=== PATIENT | female | born 1990 | race Caucasian/White ===

== ENCOUNTER 2020-10-04 08:33 | Outpatient (REF) | payer BC, SELFPAY ==
[2020-10-04 11:10] LABS: MANUAL DIFF FLAG NO
[2020-10-04 11:16] LABS: Basophils Absolute Auto 0.1 X10*3/uL (0.0-0.2); Basophils Percent Auto 0.7 % (0-2); Eosinophils Absolute Auto 0.3 X10*3/uL (0.0-0.4); Eosinophils Percent Auto 4.4 % (0-4); Hematocrit 40.2 % (37-47); Hemoglobin 13.4 g/dl (12.0-16.0); Imm Gran Abs Auto 0.02 X10*3/uL (0.00-0.03); Imm Gran Pct Auto 0.3 % (0.0-0.4); Lymphocytes Absolute Auto 1.3 X10*3/uL (1.2-4.9); Lymphocytes Percent Auto 19.1 % (20-40); Mean Corpuscular HGB Conc 33.3 g/dl (31.0-35.0); Mean Corpuscular Hemoglobin 28.9 pg (27.0-33.0); Mean Corpuscular Volume 86.6 fL (80-98); Mean Platelet Volume 11.9 fL (9.4-12.3); Monocytes Absolute Auto 0.5 X10*3/uL (0.1-1.2); Monocytes Percent Auto 6.4 % (2-11); Neutrophils Absolute Auto 4.9 X10*3/uL (2.0-8.3); Neutrophils Percent Auto 69.1 % (45-73); Platelet Count 229 X10*3/uL (160-400); Red Blood Count 4.64 X10*6/uL (4.20-5.50); Red Cell Distribution Width 11.9 % (11.0-16.0)
[2020-10-04 12:04] LABS: TSH reflex Free T4 1.99 uIU/mL (0.32-4.0)
[2020-10-04 12:08] LABS: Alanine Aminotransferase 12 U/L (0-31); Albumin Level 4.6 g/dL (3.5-5.0); Alkaline Phosphatase 31 U/L (39-117); Anion Gap 13 (12-20); Aspartate Amino Transferase 14 U/L (5-31); Bilirubin Direct 0.3 mg/dL (0.0-0.5); Bilirubin Total 0.7 mg/dL (0.0-1.0); Blood Urea Nitrogen 10 mg/dL (9-16); Calcium 8.6 mg/dL (8.4-10.2); Carbon Dioxide 24 mmol/L (22-29); Chloride 106 mmol/L (96-108); Cholesterol 157 mg/dL; Estimated Glomerular Filt Rate > 60; Glucose Fasting 89 mg/dL (60-99); HDL Cholesterol 63 mg/dL; LDL Cholesterol Calculated 81 mg/dl; Potassium 4.1 mmol/L (3.3-5.1); Sodium 139 mmol/L (135-145); Total Protein 6.7 g/dL (6.5-8.0); Triglycerides 66 mg/dL
== END 2020-10-04 08:34 | disposition home or self-care (01) ==
LOC: HO.HMGCLDS 08:33
PROVIDERS: PCP Internal Medicine; Visit Provider Internal Medicine
DX: Z00.01 Encounter for general adult medical examination with abnormal findings (principal); F41.0 Panic disorder [episodic paroxysmal anxiety]
CPT/HCPCS: 36415; 80048; 80061; 80076; 84443; 85025

== ENCOUNTER 2021-02-04 13:41 | Outpatient (REF) | payer BC, SELFPAY ==
[2021-02-05 01:49] LABS: CT PCR NOT DETECTED (Not Detect.); NG PCR NOT DETECTED (Not Detect.)
== END 2021-02-04 13:42 | disposition home or self-care (01) ==
LOC: HO.LAB 13:41
PROVIDERS: PCP Internal Medicine; Visit Provider Advanced Practice Midwife
DX: Z01.419 Encounter for gynecological examination (general) (routine) without abnormal findings (principal); Z11.3 Encounter for screening for infections with a predominantly sexual mode of transmission; Z20.2 Contact with and (suspected) exposure to infections with a predominantly sexual mode of transmission
CPT/HCPCS: 87491; 87591; 88142

== ENCOUNTER 2021-10-08 10:45 | Outpatient (REF) | payer BC, SELFPAY ==
[2021-10-08 13:51] LABS: MANUAL DIFF FLAG NO
[2021-10-08 13:55] LABS: Basophils Absolute Auto 0.1 X10*3/uL (0.0-0.2); Eosinophils Absolute Auto 0.1 X10*3/uL (0.0-0.4); Eosinophils Percent Auto 2.9 % (0-4); Hematocrit 40.6 % (37.0-47.0); Hemoglobin 13.7 g/dl (12.0-16.0); Imm Gran Abs Auto 0.02 X10*3/uL (0.00-0.03); Imm Gran Pct Auto 0.4 % (0.0-0.4); Lymphocytes Absolute Auto 1.4 X10*3/uL (1.2-4.9); Mean Corpuscular HGB Conc 33.7 g/dl (31.0-35.0); Mean Corpuscular Hemoglobin 29.3 pg (27.0-33.0); Mean Corpuscular Volume 86.9 fL (80.0-98.0); Mean Platelet Volume 11.3 fL (9.4-12.3); Monocytes Absolute Auto 0.3 X10*3/uL (0.1-1.2); Monocytes Percent Auto 6.5 % (2-11); Neutrophils Percent Auto 60.2 % (45-73); Platelet Count 265 X10*3/uL (160-400); Red Blood Count 4.67 X10*6/uL (4.20-5.50); Red Cell Distribution Width 11.9 % (11.0-16.0); White Blood Count 4.9 X10*3/uL (4.8-10.8)
[2021-10-08 14:11] LABS: Alanine Aminotransferase 25 U/L (0-31); Albumin Level 4.5 g/dL (3.5-5.0); Alkaline Phosphatase 38 U/L (39-117); Anion Gap 12 (12-20); Aspartate Amino Transferase 22 U/L (5-31); Bilirubin Total 0.7 mg/dL (0.0-1.0); Blood Urea Nitrogen 12 mg/dL (9-16); Calcium 9.1 mg/dL (8.4-10.2); Carbon Dioxide 26 mmol/L (22-29); Chloride 104 mmol/L (96-108); Cholesterol 203 mg/dL; Estimated Glomerular Filt Rate > 60; Glucose Fasting 83 mg/dL (60-99); HDL Cholesterol 67 mg/dL; LDL Cholesterol Calculated 114 mg/dl; Potassium 4.1 mmol/L (3.3-5.1); Sodium 138 mmol/L (135-145); Total Protein 6.8 g/dL (6.5-8.0); Triglycerides 112 mg/dL
[2021-10-08 14:32] LABS: TSH reflex Free T4 1.57 uIU/mL (0.32-4.0)
== END 2021-10-08 10:46 | disposition home or self-care (01) ==
LOC: HO.HMGCLDS 10:45
PROVIDERS: Visit Provider Internal Medicine
DX: Z00.01 Encounter for general adult medical examination with abnormal findings (principal); F41.0 Panic disorder [episodic paroxysmal anxiety]
CPT/HCPCS: 36415; 80053; 80061; 84443; 85025

== ENCOUNTER 2022-02-10 13:32 | Outpatient (REF) | payer BC, SELFPAY ==
[2022-02-13 19:06] LABS: HPV mRNA E6/E7 rflx Not Detected (Not Detected)
== END 2022-02-10 13:33 | disposition home or self-care (01) ==
LOC: HO.LAB 13:32
PROVIDERS: Visit Provider Advanced Practice Midwife
DX: Z01.419 Encounter for gynecological examination (general) (routine) without abnormal findings (principal)
CPT/HCPCS: 87624; 88142

== ENCOUNTER 2023-02-19 13:51 | Outpatient (REF) | payer BC, SELFPAY | END 2023-02-19 13:52 | disposition home or self-care (01) | LOC: HO.HMGCLDS 13:51 | PROVIDERS: PCP Internal Medicine; Visit Provider Internal Medicine | DX: Z00.01 Encounter for general adult medical examination with abnormal findings (principal); F41.0 Panic disorder [episodic paroxysmal anxiety]; R79.89 Other specified abnormal findings of blood chemistry | CPT/HCPCS: 36415; 80053; 85025 ==

== ENCOUNTER 2023-04-01 12:48 | Outpatient (AMB) | payer BC, SELFPAY ==
--- NOTE | 2023-04-01 12:53 | A.OFFVIS_ITS ---
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 Scribed for RICHA Isaac by Lilliana Dominguez medical donation professional, on 04/01/2023 at 1:11 pm EST. [employer] Etch Operator Required: No Information Interpreted: non-clinical & clinical Litigation Services Manager: Litigation Services Manager Present (Dinorah) Allergies No Known Allergies Allergy (Verified 04/01/23 12:58) Is last menstrual period known: Yes Last menstrual period: 03/22/23 Post menopausal: No Patient : No HPI HPI Comments History of Present Illness Details She is a premenopausal woman presenting for annual exam. She admits to eating healthy and tries to stay active with exercise. Currently sexually active. Her and her recently seen infertility specialist with results of partner has low sperm count and are planning to do IUI. Regular monthly periods. Denies vaginal itching and irritation. Denies family hx of breast and ovarian cancer. Last pap smear 02/10/22. [facility] Medical History History of infertility Panic anxiety syndrome Surgical History H/O plastic surgery Hx of wisdom tooth extraction Family History Mother CLL (chronic lymphocytic leukemia) Father No problems noted. Paternal Grandmother Colon cancer Social History Household Members: Spouse Housing: House Alcohol intake: current Alcohol intake frequency: holidays/special occasions only Patient Tobacco Use Status: Never used Tobacco e-Cigarette/Vaping Use: Never Used Second Hand Smoke Exposure: No service: No Current occupational status: employed Current occupation: [employer] Current occupational exposures/hazards: No Sexual orientation: Straight/Heterosexual Gender identity: Female Cognitive needs: No Hearing needs: No Vision needs: No Female Reproductive History Menstrual Age of Menarche: 15 Duration of menses: 3-5 days Date of last menstrual period: 03/22/23 control method: none Total pregnancies: 0 Date of last pap smear: 02/10/22 (neg pap and hpv) Physical Exam Vital Signs: Last Vital Signs BP 106/62 04/01/23 12:55 BMI result Body Mass Index 27.6 Const General: cooperative, healthy appearing, no acute distress, well developed and alert Orientation/consciousness: patient oriented x3 HEENT Head: Yes normal to inspection Eyes General: appearance normal, both eyes and all related structures Neck Neck: Yes normal visual inspection Thyroid: Thyroid normal Chest Chest palpation & inspection: normal inspection of the chest Breast/axilla inspection: normal inspection of the breasts (no puckering, dimpling, peau de orange, retraction, discharge, masses) Breast/axilla palpation: normal palpation of the breasts Resp Effort & Inspection: normal respiratory effort GI Inspection: Yes normal to inspection Palpation (GI): Soft to palpation (to palpation) Rectal Exam - Female: deferred General: Yes bladder normal to inspection External Female Exam: normal external appearance and normal appearance of the urethra Speculum Exam - Vagina: normal appearance of the vagina, normal palpation and normal vaginal discharge Speculum Exam - Cervix: normal appearance of the cervix and normal palpation Bimanual exam- vagina & uterus: normal palpation and normal palpation Bimanual Exam- Adnexa, other: normal adnexae and no masses Skin General skin exam: no rashes or lesions noted Neuro General: patient oriented x3 Cognition (Neuro): normal cognition Extrem General: Yes normal to inspection Psych Attitude: cooperative Thought process: Normal thought process present Assessment & Plan Assessment & Plan (1) History of infertility: Comment: partner has low sperm count; planning to do IUI. Code(s): Z87.42 - Personal history of other diseases of the female genital tract (2) Encounter for annual routine gynecological examination: Code(s): Z01.419 - Encounter for gynecological examination (general) (routine) without abnormal findings Plan: Discussed: Current recommendations for pap smears per ASCCP guidelines Breast awareness and periodic self breast exams. Maintaining a healthy lifestyle including a well balanced diet and routine exercise. If become consider transferring care to [facility] due to possibly being high risk. All of her questions and concerns were addressed to the best of my ability. RTO in one year for AG. Coding Level of Care Code Est Pt Prev Care 18-39y(38525) Diagnoses History of infertility Z87.42 Encounter for annual routine gynecological examination Z01.419
[2023-04-01 12:55] VITALS: BP 106/62; BMI 27.6
== END 2023-04-01 13:22 | disposition home or self-care (01) ==
LOC: HO.HWS 12:48
PROVIDERS: PCP Internal Medicine; Visit Provider Advanced Practice Midwife
DX: Z01.419 Encounter for gynecological examination (general) (routine) without abnormal findings (principal); Z87.42 Personal history of other diseases of the female genital tract
CPT/HCPCS: 99395

== ENCOUNTER → 2023-04-01 12:48 | Outpatient (BNVA) | payer BC, SELFPAY | PROVIDERS: PCP Internal Medicine; Visit Provider Advanced Practice Midwife ==

== ENCOUNTER 2023-08-24 15:03 | Outpatient (AMB) | payer BC, SELFPAY ==
[2023-08-24 15:06] VITALS: BP 114/72; PULSE 66; O2SAT 98; BMI 28.0
--- NOTE | 2023-08-24 15:06 | A.OFFPC_ITS ---
Vital Signs 08/24/23 15:06 Height 5 ft 3 in Weight 158 lb 2 oz BMI 28.0 BP 114/72 Blood Pressure Location Lt brachial Position Sitting Pulse 66 Pulse Source Pulse Oximeter Pulse Oximetry (%) 98 Oxygen Delivery Method Room Air Intake Visit Reasons: 6 month follow up Allergies No Known Allergies Allergy (Verified 08/24/23 15:06) Medication List - Last Reconciled 08/24/23 by Tony East MD fluoxetine 10 mg PO DAILY 90 days Tobacco use date assessed: 08/24/23 Dental Screening Dental Screen Date: 08/24/23 Did you have a dental visit in the last 12 months?: Yes Did you have a dental problem in the last 6 months where you did not have access to dental care?: No Was dental information given to patient?: Patient has dentist HPI 6 month follow up HPI Details Patient is a 33-year-old female came in today for six-month follow-up appointment on anxiety panic disorder Patient is on fluoxetine 10 mg and is doing very well Sleeping well, no side effects She had slightly elevated LFT we will be monitoring that again in summer when e will come in for physical exam. She offer no complaints today [facility] Medical History History of infertility Panic anxiety syndrome Surgical History Hx of wisdom tooth extraction H/O plastic surgery Family History Mother CLL (chronic lymphocytic leukemia) Father No problems noted. Paternal Grandmother Colon cancer Social History Household Members: Spouse Housing: House Alcohol intake: current Alcohol intake frequency: holidays/special occasions only Patient Tobacco Use Status: Never used Tobacco e-Cigarette/Vaping Use: Never Used Second Hand Smoke Exposure: No service: No Current occupational status: employed Current occupation: [employer] Current occupational exposures/hazards: No Sexual orientation: Straight/Heterosexual Gender identity: Female Cognitive needs: No Hearing needs: No Vision needs: No Female Reproductive History Menstrual Age of Menarche: 15 Questionnaire Thrive Questionnaire Date Thrive assessed: 10/07/21 SERENA-7 AMB Questionnaire SERENA-7 Date SERENA - 7 assessed: 10/07/21 Source: Developed by Drs. Jack Villanueva, Radha Vasquez, Porfirio Hendrix and colleagues, with an educational laurita from [employer]. Review of Systems Const Denies chills and Denies fever(s) ENT Denies epistaxis and Denies nasal discharge Card Denies chest pain Resp Denies chest congestion, Denies cough and Denies hemoptysis GI Denies diarrhea and Denies nausea Skin/Breast Denies rash Neuro Reports no additional complaints Psych Reports no additional complaints Endo Reports no additional complaints Physical exam (Primary Care) Vital Signs: Last Vital Signs Pulse 66 08/24/23 15:06 BP 114/72 08/24/23 15:06 Pulse Ox 98 08/24/23 15:06 Oxygen Delivery Method Room Air 08/24/23 15:06 BMI result Body Mass Index 28.0 Tobacco/Smoking Status: Tobacco use Status Tobacco use date assessed 08/24/23 08/24/23 15:08 Patient Tobacco Use Status Never used Tobacco 08/24/23 15:08 e-Cigarette/Vaping Use Never Used 08/24/23 15:08 Thrive Assessment: Date of Thrive Assessment Date Thrive assessed 10/07/21 08/24/23 15:08 Const General: cooperative, comfortable and no acute distress Orientation/consciousness: patient oriented x3 HENMT Head: Yes normocephalic Eyes General: appearance normal, both eyes and all related structures Neck Neck: Yes supple Resp Effort & Inspection: normal respiratory effort, no cough and no stridor Cardio Rhythm: regular rhythm Heart sounds: S1 normal heart sound present and S2 normal heart sound present Skin General skin exam: turgor normal Neuro General: patient oriented x3, tone normal and moves all extremities Extrem Right lower extremity: no edema Left lower extremity: no edema Assessment and Plan Assessment & Plan (1) Panic anxiety syndrome: Code(s): F41.0 - Panic disorder [episodic paroxysmal anxiety] (2) LFT elevation: Code(s): R79.89 - Other specified abnormal findings of blood chemistry Plan Patient is a 33-year-old female came in today for six-month follow-up appointment on anxiety panic disorder Patient is on fluoxetine 10 mg and is doing very well Sleeping well, no side effects She had slightly elevated LFT we will be monitoring that again in summer when she will come in for physical exam. She offer no complaints today Orders: Orders LDL Cholesterol Direct 5 Months F41.0 - Panic disorder [episodic paroxysmal anxiety], R79.89 - Other specified abnormal findings of blood chemistry TSH reflex Free T4 5 Months F41.0 - Panic disorder [episodic paroxysmal anxiety], R79.89 - Other specified abnormal findings of blood chemistry Complete Blood Count Auto Diff 5 Months F41.0 - Panic disorder [episodic paroxysmal anxiety], R79.89 - Other specified abnormal findings of blood chemistry Comprehensive Met. Panel 5 Months F41.0 - Panic disorder [episodic paroxysmal anxiety], R79.89 - Other specified abnormal findings of blood chemistry Medications: Refilled fluoxetine 10 mg PO DAILY 90 caps 1RF 90 days F41.0 - Panic disorder [episodic paroxysmal anxiety] Coding Level of Care Code Est Pt Level 3 (52318) Diagnoses Panic anxiety syndrome F41.0 LFT elevation R79.89
== END 2023-08-24 15:35 | disposition home or self-care (01) ==
PROVIDERS: PCP Internal Medicine; Visit Provider Internal Medicine
DX: F41.0 Panic disorder [episodic paroxysmal anxiety] (principal); R79.89 Other specified abnormal findings of blood chemistry
CPT/HCPCS: 99213

== ENCOUNTER 2024-02-29 11:26 | Outpatient (AMB) | payer BC, SELFPAY ==
--- NOTE | 2024-02-29 11:28 | MHC.PC.OV ---
Vital Signs 02/29/24 11:29 Height 5 ft 3 in Weight 158 lb BMI 28.0 BP 124/80 Blood Pressure Location Lt brachial Position Sitting Pulse 67 Pulse Source Pulse Oximeter Pulse Oximetry (%) 98 Oxygen Delivery Method Room Air Intake Visit Reasons: PE Allergies No Known Allergies Allergy (Verified 02/29/24 11:28) Medication List - Last Reconciled 02/29/24 by Tony East MD fluoxetine 10 mg PO DAILY 90 days Tobacco use date assessed: 02/29/24 Dental Screening Dental Screen Date: 08/24/23 HPI PE HPI Details Patient is a 33-year-old female came in today for physical exam Patient is established with [facility] Labs done last year reviewed Alkaline phosphatase is slightly elevated, we will be repeating the labs again Patient is on fluoxetine 10 mg for anxiety/panic disorder and is doing well Six-month follow-up for fluoxetine refill and physical exam 1 year [facility] Medical History History of infertility Panic anxiety syndrome Surgical History Hx of wisdom tooth extraction H/O plastic surgery Family History Mother CLL (chronic lymphocytic leukemia) Father No problems noted. Paternal Grandmother Colon cancer Social History Household Members: Spouse Housing: House Alcohol intake: current Alcohol intake frequency: holidays/special occasions only Patient Tobacco Use Status: Never used Tobacco e-Cigarette/Vaping Use: Never Used Second Hand Smoke Exposure: No service: No Current occupational status: employed Current occupation: [employer] Current occupational exposures/hazards: No Sexual orientation: Straight/Heterosexual Gender identity: Female Cognitive needs: No Hearing needs: No Vision needs: No Female Reproductive History Menstrual Age of Menarche: 15 Questionnaire PHQ-9 Over the last 2 weeks, how often have you been bothered by any of the following problems? 1. Little interest or pleasure in doing things: not at all 2. Feeling down, depressed, or hopeless: not at all 3. Trouble falling or staying asleep, or sleeping too much: not at all 4. Feeling tired or having little energy: not at all 5. Poor appetite or overeating: not at all 6. Feeling bad about yourself - or that you are a failure or have let yourself or your family down: not at all 7. Trouble concentrating on things, such as reading the newspaper or watching television: not at all 8. Moving or speaking so slowly that other people could have noticed. Or the opposite - being so fidgety or restless that you have been moving around a lot more than usual: not at all 9. Thoughts that you would be better off or of hurting yourself in some way: not at all Total score: 0 Depression Screening Interpretation: Negative Depression Screening Done: Yes 36212 - PHQ-9 Billing: Yes Source: Developed by Drs. Jack Villanueva, Radha Vasquez, Porfirio Hendrix and colleagues, with an educational laurita from [employer]. Thrive Questionnaire Date Thrive assessed: 02/29/24 I am a: Patient What is your living situation today?: I have a steady place to live Within the past 12 months, did the food you bought not last and you didn't have the money to get more?: Never true Within the past 12 months, did you worry whether your food would run out before you got money to buy more?: Never true Do you have trouble paying for medicines?: No Do you have trouble getting transportation to medical appointments?: No Do you have trouble paying your heating and electricity bill?: No Do you have trouble taking care of your child, family member or friend?: No Do you have trouble with day-to-day activities such as bathing, preparing meals, shopping, managing finances, etc.?: No Are you currently unemployed and looking for a job?: No Are you interested in more education?: No Please select the resources that you would like help with: Housing/Long-Term Currently or been in a relationship where the following occur: No concerns reported THRIVE Score: 0 AUDIT C Alcohol Use Questionnaire (AUDIT-C) 1. How often do you have a drink containing alcohol?: Never 2. How many drinks containing alcohol do you have on a typical day when you are drinking?: 1 or 2 3. How often do you have six or more drinks on one occasion?: Never Total Score: 0 Score Reviewed/Action Taken: Yes SERENA-7 AMB Questionnaire SERENA-7 Date SERENA - 7 assessed: 02/29/24 Feeling nervous, anxious, or on edge: 0 = Not at all Not being able to stop or control worryin = Not at all Worrying too much about different things: 0 = Not at all Trouble relaxin = Not at all Being so restless that it is hard to sit still: 0 = Not at all Becoming easily annoyed or irritable: 0 = Not at all Feeling afraid as if something awful might happen: 0 = Not at all Total SERENA-7 score (0-4 normal; 5-9 mild; 10-14 moderate; 15-21 severe): 0 Source: Developed by Drs. Jack Villanueva, Radha Vasquez, Porfirio Hendrix and colleagues, with an educational laurita from [employer]. SERENA-7 Assessment Billing SERENA-7 Assessment Tool: SERENA-7 Assessment 55946 Review of Systems Const Denies chills, Denies fever(s) and Denies headache(s) Eyes Denies blurry vision ENT Denies headache(s), Denies nasal discharge, Denies nasal obstruction, Denies odynophagia and Denies sinus pain Card Denies chest pain at rest and Denies chest pain with activity Resp Denies cough and Denies hemoptysis GI Denies diarrhea, Denies odynophagia, Denies vomiting and Denies hematemesis Reports as per HPI Musc Denies abnormal gait Skin/Breast Reports as per HPI Neuro Denies Neuro-related abnormal movements, Denies Abnormal speech present, Denies abnormal gait, Denies headache(s) and Denies Sensory deficit (Neuro) Psych Denies mood swings and Denies paranoia Endo Reports as per HPI Karsten/Lymph Reports as per HPI Aller/Immun Reports as per HPI Physical exam (Primary Care) Vital Signs: Last Vital Signs Pulse 67 02/29/24 11:29 BP 124/80 02/29/24 11:29 Pulse Ox 98 02/29/24 11:29 Oxygen Delivery Method Room Air 02/29/24 11:29 BMI result Body Mass Index 28.0 Tobacco/Smoking Status: Tobacco use Status Tobacco use date assessed 02/29/24 02/29/24 11:33 Patient Tobacco Use Status Never used Tobacco 02/29/24 11:33 e-Cigarette/Vaping Use Never Used 02/29/24 11:33 PHQ-9: PHQ-9 Score PHQ-9: Total score 0 02/29/24 11:35 Depression Screening Interpretation: Negative Thrive Assessment: Date of Thrive Assessment Date Thrive assessed 02/29/24 02/29/24 11:33 Currently or been in a relationship where the following occur: No concerns reported Const General: cooperative, comfortable and no acute distress Orientation/consciousness: patient oriented x3 HENMT Head: Yes normocephalic and Yes atraumatic Eyes General: appearance normal, both eyes and all related structures Pupils: Equal, round and reactive pupils present EOM: EOMs intact bilaterally Neck Neck: Yes supple and No lymphadenopathy Thyroid: Thyroid normal Lymphatic: no lymphadenopathy noted Resp Effort & Inspection: normal respiratory effort and able to speak in complete sentences Auscultation: clear to auscultation bilaterally Cardio Heart sounds: S1 normal heart sound present and S2 normal heart sound present GI Palpation (GI): Soft to palpation and nontender Auscultation: normal bowel sounds General: Yes no CVA tenderness Back/Spine/Pelvis Back: no CVA tenderness Skin General skin exam: elasticity normal and turgor normal Neuro General: patient oriented x3 and gait normal Cranial nerves: Yes Equal, round and reactive pupils present Speech: No Abnormal speech present Sensory Exam: No Sensory deficit (Neuro) Coordination: tandem gait normal and Romberg test negative Extrem General: Yes normal exam except as noted and No edema Assessment and Plan Assessment & Plan (1) Encounter for general adult medical examination with abnormal findings: Code(s): Z00.01 - Encounter for general adult medical examination with abnormal findings (2) Panic anxiety syndrome: Code(s): F41.0 - Panic disorder [episodic paroxysmal anxiety] (3) LFT elevation: Code(s): R79.89 - Other specified abnormal findings of blood chemistry Plan Patient is a 33-year-old female came in today for physical exam Patient is established with [facility] Labs done last year reviewed Alkaline phosphatase is slightly elevated, we will be repeating the labs again Patient is on fluoxetine 10 mg for anxiety/panic disorder and is doing well Six-month follow-up for fluoxetine refill and physical exam 1 year Medications: Refilled fluoxetine 10 mg PO DAILY 90 caps 1RF 90 days F41.0 - Panic disorder [episodic paroxysmal anxiety] Coding Level of Care Code Est Pt Prev Care 18-39y(25373) Diagnoses Encounter for general adult medical examination with abnormal findings Z00.01 Panic anxiety syndrome F41.0 LFT elevation R79.89 Additional Codes SERENA-7 Assessment Billing - SERENA-7 Assessment Tool: SERENA-7 Assessment [id number] ([id number])
[2024-02-29 11:29] VITALS: BP 124/80; PULSE 67; O2SAT 98; BMI 28.0
== END 2024-02-29 11:51 | disposition home or self-care (01) ==
PROVIDERS: PCP Internal Medicine; Visit Provider Internal Medicine
DX: Z00.00 Encounter for general adult medical examination without abnormal findings (principal); F41.0 Panic disorder [episodic paroxysmal anxiety]; R79.89 Other specified abnormal findings of blood chemistry
CPT/HCPCS: 99395

== ENCOUNTER 2024-02-29 11:54 | Outpatient (REF) | payer BC, SELFPAY ==
[2024-02-29 12:59] LABS: MANUAL DIFF FLAG NO
[2024-02-29 13:07] LABS: Basophils Percent Auto 0.8 % (0-2); Eosinophils Absolute Auto 0.1 X10*3/uL (0.0-0.4); Eosinophils Percent Auto 1.6 % (0-4); Hematocrit 39.6 % (37.0-47.0); Hemoglobin 13.6 g/dl (12.0-16.0); Imm Gran Abs Auto 0.01 X10*3/uL (0.00-0.03); Imm Gran Pct Auto 0.2 % (0.0-0.4); Lymphocytes Absolute Auto 1.5 X10*3/uL (1.2-4.9); Lymphocytes Percent Auto 29.7 % (20-40); Mean Corpuscular HGB Conc 34.3 g/dl (31.0-35.0); Mean Corpuscular Hemoglobin 29.6 pg (27.0-33.0); Mean Corpuscular Volume 86.3 fL (80.0-98.0); Mean Platelet Volume 10.6 fL (9.4-12.3); Monocytes Absolute Auto 0.4 X10*3/uL (0.1-1.2); Monocytes Percent Auto 7.1 % (2-11); Neutrophils Percent Auto 60.6 % (45-73); Platelet Count 310 X10*3/uL (160-400); Red Blood Count 4.59 X10*6/uL (4.20-5.50); Red Cell Distribution Width 11.9 % (11.0-16.0)
[2024-02-29 13:44] LABS: Alanine Aminotransferase 23 U/L (0-31); Albumin Level 4.6 g/dL (3.5-5.0); Alkaline Phosphatase 39 U/L (39-117); Anion Gap 13 (12-20); Aspartate Amino Transferase 21 U/L (5-31); Bilirubin Total 0.6 mg/dL (0.0-1.0); Blood Urea Nitrogen 11 mg/dL (9-16); Calcium 9.6 mg/dL (8.4-10.2); Carbon Dioxide 25 mmol/L (22-29); Chloride 105 mmol/L (96-108); Estimated Glomerular Filt Rate > 60; Glucose Random 94 mg/dL (60-115); Potassium 3.8 mmol/L (3.3-5.1); Sodium 139 mmol/L (135-145); TSH reflex Free T4 1.41 uIU/mL (0.32-4.0); Total Protein 6.9 g/dL (6.5-8.0)
[2024-03-03 06:09] LABS: LDL Cholesterol Direct 154 mg/dL (<100)
== END 2024-02-29 11:55 | disposition home or self-care (01) ==
LOC: HO.HMGCLDS 11:54
PROVIDERS: PCP Internal Medicine; Visit Provider Internal Medicine
DX: F41.0 Panic disorder [episodic paroxysmal anxiety] (principal); R79.89 Other specified abnormal findings of blood chemistry
CPT/HCPCS: 36415; 80053; 83721; 84443; 85025

== ENCOUNTER 2024-04-05 14:33 | Outpatient (AMB) | payer BC, SELFPAY ==
--- NOTE | 2024-04-05 14:38 | A.OFFVIS_ITS ---
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 Doing well with concerns: unable to conceive after 3.5yrs, seen at [facility] in the past. Using as to help with ovulation prediction. She tries to eat healthy and stays active with exercise. Regular monthly menses. Currently is sexually active. She denies vaginal itching and irritation. STI screening offered; she declined. Denies family history of breast, ovarian or cancer. FH colon cancer-[facility]. Last pap smear 2021, negative. [facility] Medical History History of infertility Panic anxiety syndrome Surgical History Hx of wisdom tooth extraction H/O plastic surgery Family History Mother CLL (chronic lymphocytic leukemia) Father No problems noted. Paternal Grandmother Colon cancer Social History Household Members: Spouse Housing: House Alcohol intake: current Alcohol intake frequency: holidays/special occasions only Patient Tobacco Use Status: Never used Tobacco e-Cigarette/Vaping Use: Never Used Second Hand Smoke Exposure: No service: No Current occupational status: employed Current occupation: [email or web address] Current occupational exposures/hazards: No Sexual orientation: Straight/Heterosexual Gender identity: Female Cognitive needs: No Hearing needs: No Vision needs: No Female Reproductive History Menstrual Age of Menarche: 15 Duration of menses: 3-5 days Date of last menstrual period: 03/16/24 Menopause type: natural Total pregnancies: 0 Date of last pap smear: 02/10/22 (neg pap and hpv) Review of Systems Const All systems reviewed & are unremarkable except as noted in HPI and below Reports as per HPI Eyes Reports no additional complaints ENT Reports no additional complaints Card Reports no additional complaints Resp Reports no additional complaints GI Reports as per HPI and Reports no additional complaints Reports as per HPI Musc Reports no additional complaints Skin/Breast Reports as per HPI Neuro Reports no additional complaints Psych Reports no additional complaints Endo Reports no additional complaints Karsten/Lymph Reports no additional complaints Aller/Immun Reports no additional complaints Physical Exam Vital Signs: Last Vital Signs BP 100/66 04/05/24 14:39 BMI result Body Mass Index 28.2 Const General: cooperative, healthy appearing, no acute distress, well developed and alert Orientation/consciousness: patient oriented x3 HEENT Head: Yes normal to inspection Eyes General: appearance normal, both eyes and all related structures Neck Neck: Yes normal visual inspection Thyroid: Thyroid normal Chest Chest palpation & inspection: normal inspection of the chest and other (no puckering, dimpling, peau de orange, retraction, discharge, masses) Breast/axilla inspection: normal inspection of the breasts Breast/axilla palpation: normal palpation of the breasts Resp Effort & Inspection: normal respiratory effort GI Inspection: Yes normal to inspection Palpation (GI): Soft to palpation Rectal Exam - Female: deferred General: Yes bladder normal to palpation External Female Exam: normal external appearance and normal appearance of the urethra Speculum Exam - Vagina: normal appearance of the vagina, normal palpation and normal vaginal discharge Speculum Exam - Cervix: normal appearance of the cervix and normal palpation Bimanual exam- vagina & uterus: normal bimanual exam, normal palpation, uterine size normal, bladder normal to palpation, normal palpation and non-tender Bimanual Exam- Adnexa, other: no masses Skin General skin exam: no rashes or lesions noted Rashes: no rashes Neuro General: patient oriented x3 Cognition (Neuro): normal cognition Extrem General: Yes normal to inspection Psych Attitude: cooperative Thought process: Normal thought process present Assessment & Plan Assessment & Plan (1) Encounter for well woman exam with routine gynecological exam: Code(s): Z01.419 - Encounter for gynecological examination (general) (routine) without abnormal findings Category: Medical Plan Discussed: Current recommendations for pap smears per ASCCP guidelines. Breast awareness and periodic breast exams. Maintain a healthy lifestyle including a well balanced diet and routine exercise. Recommended she consider referral to [facility], advised to check coverage on her insurance plan and let me know where she would like to be referred to. Continue with her vitamins, declined prescription. Patient verbalizes understanding and agrees to the plan of care. She was given opportunity to ask questions and all questions were answered to the best of my ability. 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 This note is constructed using voice recognition software. While every effort has been made to ensure accuracy, brush finisher errors may have been included. Coding Level of Care Code Est Pt Prev Care 18-39y(52342) Diagnoses Encounter for well woman exam with routine gynecological exam Z01.419
[2024-04-05 14:39] VITALS: BP 100/66; BMI 28.2
== END 2024-04-05 15:06 | disposition home or self-care (01) ==
LOC: HO.HWS 14:33
PROVIDERS: PCP Internal Medicine; Visit Provider Advanced Practice Midwife
DX: Z01.419 Encounter for gynecological examination (general) (routine) without abnormal findings (principal)
CPT/HCPCS: 99395

== ENCOUNTER → 2024-04-05 14:33 | Outpatient (BNVA) | payer BC, SELFPAY | PROVIDERS: PCP Internal Medicine; Visit Provider Advanced Practice Midwife ==

== ENCOUNTER 2024-07-29 10:46 | Outpatient (AMB) | payer BC, SELFPAY ==
[2024-07-29 10:48] VITALS: BP 110/66; PULSE 78; TEMP 36.6; O2SAT 98; BMI 28.2
--- NOTE | 2024-07-29 10:48 | AM.OFFWIN_ITS ---
Intake Vital Signs 07/29/24 10:48 Height 5 ft 3 in Weight 159 lb BMI 28.2 BP 110/66 Blood Pressure Location Rt brachial Position Sitting Pulse 78 Pulse Source Pulse Oximeter Temp 97.9 F Temp Source Temporal Artery Scan Pulse Oximetry (%) 98 Intake Visit Reasons: EP ?ear infection Intake Note: pt is here for ear infection Patient Tobacco Use Status: Never used Tobacco Allergies No Known Allergies Allergy (Verified 07/29/24 10:48) Do you need a note to return to daycare/school/sports/work: No HPI HPI Comments History of Present Illness Details She presents to office with cold symptoms Congestion x 1 week Eorsening sore throat Onset R sided sharp pain ear pain since last night + blocked hearing No medicine for symptoms No fever or chills Able to eat and drink with discomfort + slight cough without SOB PFSH Medical History History of infertility Panic anxiety syndrome Surgical History Hx of wisdom tooth extraction H/O plastic surgery Family History Mother CLL (chronic lymphocytic leukemia) Father No problems noted. Paternal Grandmother Colon cancer Social History Household Members: Spouse Housing: House Alcohol intake: current Alcohol intake frequency: holidays/special occasions only Patient Tobacco Use Status: Never used Tobacco e-Cigarette/Vaping Use: Never Used Second Hand Smoke Exposure: No service: No Current occupational status: employed Current occupation: [employer] Current occupational exposures/hazards: No Sexual orientation: Straight/Heterosexual Gender identity: Female Cognitive needs: No Hearing needs: No Vision needs: No Female Reproductive History Menstrual Age of Menarche: 15 Review of Systems Const Denies chills and Denies fever(s) Eyes Denies change in vision ENT Denies ear discharge, Reports nasal congestion, Reports sore throat and Reports other (pain R ear) Card Denies chest pain and Denies dyspnea Resp Reports cough and Denies dyspnea Musc Denies myalgias Physical Exam Vital Signs: Last Vital Signs Temp 97.9 F 07/29/24 10:48 Pulse 78 07/29/24 10:48 BP 110/66 07/29/24 10:48 Pulse Ox 98 07/29/24 10:48 BMI result Body Mass Index 28.2 General: Non-toxic, NAD. Speaking full sentences. Skin: Warm dry throughout Eye: EOMI HENT: Airway patent. Uvula midline. No pharyngeal erythema or edema. No AERONAUTICAL INSPECTOR. Bilateral canals clear. R TM +erythematous and bulging. L Tm slight erythema without bulge. No bilateral TM perforation or hemotympanum noted. No mastoid tenderness R side. Respiratory: CTA bilaterally. No wheezes, rales or rhonchi Cardiac: RRR. No murmur MSK: Full ROM extremities. Neurology: Alert. No aphasia or facial droop. Gait without abnormality Psych: Good mood and affect Assessment & Plan Assessment & Plan (1) Otitis media, right: Code(s): H66.91 - Otitis media, unspecified, right ear Qualifiers: Otitis media type: serous Chronicity: acute Recurrence: non-recurrent Qualified Code(s): H65.01 - Acute serous otitis media, right ear Plan: Patient seen and evaluated. + R OM Amoxicillin with food Patient gave verbal understanding and had no additional questions or concerns at time of discharge All questions answered Medications: New amoxicillin 875 mg PO BID 14 tabs 0RF Coding Level of Care Code Est Pt Level 3 (24347) Diagnoses Non-recurrent acute serous otitis media of right ear H65.01 Otitis media type: serous Chronicity: acute Recurrence: non-recurrent
== END 2024-07-29 12:08 | disposition home or self-care (01) ==
PROVIDERS: PCP Internal Medicine; Visit Provider Physician Assistant
DX: H65.01 Acute serous otitis media, right ear (principal)

== ENCOUNTER → 2024-07-29 10:46 | Outpatient (BNVA) | payer BC, SELFPAY | PROVIDERS: PCP Internal Medicine; Visit Provider Physician Assistant ==

== ENCOUNTER → 2024-08-17 08:38 | Outpatient (BNVA) | payer BC, SELFPAY | PROVIDERS: PCP Internal Medicine; Visit Provider Internal Medicine ==

== ENCOUNTER 2025-01-18 08:34 | Outpatient (AMB) | payer BC, SELFPAY ==
--- NOTE | 2025-01-18 09:42 | A.OFFPC_ITS ---
Intake Visit Reasons: F/U Allergies No Known Allergies Allergy (Verified 07/29/24 10:48) Medication List - Last Reconciled 01/18/25 by Tony East MD amoxicillin 875 mg PO BID fluoxetine 10 mg PO DAILY 90 days Tobacco use date assessed: 02/29/24 Dental Screening Dental Screen Date: 08/24/23 HPI F/U HPI Details History - The patient is a 34-year-old female pr esenting for a follow-up regarding medication management of Generalized Anxiety Disorder and Major Depressive Disorder. - The patient reported her last appointm ent was in February of the previous year. - She confirmed continued use of Fluoxet ine 10 mg, without experiencing side effects. - The patient affirmed the medication ef fectively controls her symptoms of anxiety and depression. - No recent exacerbations of anxiety or depressive symptoms were reported. Medical History: - Generalized Anxiety Disorder - Major Depressive Disorder Medications: - Fluoxetine 10 mg daily for management of Generalized Anxiety Disorder and Major Depressive Disorder. Social History: - The patient is currently attending [facility]. - Mention of potential work-related dru el was noted. Problem List - Generalized Anxiety Disorder - Major Depressive Disorder Patient Instructions - Continue taking Fluoxetine 10 mg daily as prescribed. - Plan for and attend the physical exami [facility] emergency department scheduled for March 13. - Monitor for any potential side effects from medication; report if any new symptoms arise. - Inform about any changes in schedule, particularly regarding possible travel plans. Review of Systems - general : no fever no chills - Neurological: No headaches no dizziness - Ear nose throat: No sore throat no hearing difficulty no ear pain - Cardiovascular: No syncope, no chest pain, no palpitations - Gastrointestinal: No nausea vomiting or diarrhea PFSH Medical History History of infertility Panic anxiety syndrome Surgical History Hx of wisdom tooth extraction H/O plastic surgery Family History Mother CLL (chronic lymphocytic leukemia) Father No problems noted. Paternal Grandmother Colon cancer Social History Household Members: Spouse Housing: House Alcohol intake: current Alcohol intake frequency: holidays/special occasions only Patient Tobacco Use Status: Never used Tobacco e-Cigarette/Vaping Use: Never Used Second Hand Smoke Exposure: No service: No Current occupational status: employed Current occupation: [employer] Current occupational exposures/hazards: No Sexual orientation: Straight/Heterosexual Gender identity: Female Cognitive needs: No Hearing needs: No Vision needs: No Female Reproductive History Menstrual Age of Menarche: 15 Questionnaire Thrive Questionnaire Date Thrive assessed: 02/29/24 SERENA-7 AMB Questionnaire SERENA-7 Date SERENA - 7 assessed: 02/29/24 Source: Developed by Drs. Jack Villanueva, Radha Vasquez, Porfirio Hendrix and colleagues, with an educational laurita from [employer]. Physical exam (Primary Care) Tobacco/Smoking Status: Tobacco use Status Tobacco use date assessed 02/29/24 01/18/25 09:43 Patient Tobacco Use Status Never used Tobacco 01/18/25 09:43 e-Cigarette/Vaping Use Never Used 01/18/25 09:43 Thrive Assessment: Date of Thrive Assessment Date Thrive assessed 02/29/24 01/18/25 09:43 Telehealth Telehealth Telehealth Platform: [employer] Location of provider rendering services: practice address Location of patient: address on file Patient Identification confirmed using: Name, : Yes Telehealth method: video Patient verbally consented to treatment: Yes Patient verbally consented to billing insurance company: Yes Patient informed of any privacy concerns related to visit: Yes Minutes spent on Phone/Video with Pt.: 13 Coding Level of Care Code Tele Est Pt Level 3 (66250) Diagnoses Panic anxiety syndrome F41.0 Assessment & Plan Assessment & Plan (1) Panic anxiety syndrome: Code(s): F41.0 - Panic disorder [episodic paroxysmal anxiety] Category: Medical Plan History - The patient is a 34-year-old female presenting for a follow-up regarding medication management of Generalized Anxiety Disorder and Major Depressive Disorder. - The patient reported her last appointment was in February of the previous year. - She confirmed continued use of Fluoxetine 10 mg, without experiencing side effects. - The patient affirmed the medication effectively controls her symptoms of anxiety and depression. - No recent exacerbations of anxiety or depressive symptoms were reported. Medical History: - Generalized Anxiety Disorder - Major Depressive Disorder Medications: - Fluoxetine 10 mg daily for management of Generalized Anxiety Disorder and Major Depressive Disorder. Social History: - The patient is currently attending school. - Mention of potential work-related travel was noted. Problem List - Generalized Anxiety Disorder - Major Depressive Disorder Patient Instructions - Continue taking Fluoxetine 10 mg daily as prescribed. - Plan for and attend the physical examination scheduled for March 13. - Monitor for any potential side effects from medication; report if any new symptoms arise. - Inform about any changes in schedule, particularly regarding possible travel plans. Medications: Refilled fluoxetine 10 mg PO DAILY 90 caps 0RF 90 days F41.0 - Panic disorder [episodic paroxysmal anxiety] Discontinued amoxicillin Discontinued Reason: Order 875 mg PO BID 14 tabs 0RF
== END 2025-01-18 09:43 | disposition home or self-care (01) ==
LOC: HO.HMCC 08:34
PROVIDERS: PCP Internal Medicine; Visit Provider Internal Medicine
DX: F41.0 Panic disorder [episodic paroxysmal anxiety] (principal)

== ENCOUNTER → 2025-01-18 08:34 | Outpatient (BNVA) | payer BC, SELFPAY | PROVIDERS: PCP Internal Medicine; Visit Provider Internal Medicine | DX: Z13.89 Encounter for screening for other disorder (principal) ==